=== PATIENT | female | born 1945 | race Caucasian/White ===

== ENCOUNTER 2017-06-17 12:31 | Outpatient (CLI) | payer MEDICARE, OTHER ==
[~2017-06-17] VITALS: Ht 152.4 cm; Wt 53.6 kg
[2017-06-17 13:12] VITALS: BP 102/46; Ht 152.4 cm; Wt 53.6 kg
== END 2017-06-17 13:31 | disposition home or self-care (01) ==
LOC: D.OPS 12:31
DX: M81.0 Age-related osteoporosis without current pathological fracture (principal)